=== PATIENT | male | born 1945 | race Caucasian/White ===

== ENCOUNTER 2018-10-10 22:24 | Emergency (ER) | payer MEDICARE, OTHER ==
[~2018-10-10] VITALS: Ht 177.8 cm; Wt 86.2 kg
[~2018-10-10 22:24] MED LIST: GLIP10TA11 PO; PIOG15TA8 PO
--- NOTE | 2018-10-10 22:31 | NUR ---
Placed in room 06 . Placed on surveillance system monitor, blood pressure machine and pulse oximeter. To gown for exam. Side rails up. Report given to Michael LARSEN.
[2018-10-10] MEDS ORDERED: ASPIRIN 81 MG TAB.CHEW PO ONE (22:45)
--- NOTE | 2018-10-10 22:45 | NUR ---
MARCY Bernal at bedside examining patient.
[2018-10-10 22:49] VITALS: BP_SYST 160
--- NOTE | 2018-10-10 22:50 | NUR ---
Note [email or web address] in ED - 10/10/18 at 2306 by ERLIN Patient to ER via triage for evaluation of left sided CP which patient describes as soreness. Patient is awake, alert and oriented in no acute distress, vital signs stable, respirations even and unlabored, skin warm and dry to touch. Patient shows sinus rhythm on surveillance monitor. Awaiting evaluation by ER MD, will continue to observe and assess.
--- NOTE | 2018-10-10 22:50 | NUR ---
Patient to ER via triage for evaluation of left sided cp without radiation, patient also reports weakness, patient is awake, alert and oriented in no acute distress, vital signs stable, respirations even and unlabored, skin warm and dry to touch. Patient in sinus rhythm on monitor tech. Patient has been seen and evaluated by Dr Meyer, will continue to observe and assess.
--- NOTE | 2018-10-10 22:58 | NUR ---
PT taken to radiology via gurney in stable condition
[2018-10-10] MEDS ORDERED: NITROGLYCERIN 0.4 MG TAB.SUBL SL ONE (23:00)
[2018-10-10] MEDS ORDERED: NACL 0.9% 1,000 ML IV ONE (23:00)
[2018-10-10] MEDS ORDERED: MORPHINE 4 MG/ML INJ. SYRINGE IVP ONE (23:00)
[2018-10-10] MEDS ORDERED: INSU100V9 SQ (23:03)
[2018-10-10] MEDS ORDERED: OMEG-95 PO (23:03)
[2018-10-10] MEDS ORDERED: METF1000 PO (23:03)
[2018-10-10] MEDS ORDERED: LOSA25TA3 PO (23:03)
[2018-10-10] MEDS ORDERED: OMEG-158 PO (23:03)
[2018-10-10] MEDS ORDERED: VITD2000 PO (23:03)
[2018-10-10] MEDS ORDERED: LIP20 PO (23:03)
[2018-10-10] MEDS ORDERED: GLIP10TA21 PO (23:03)
--- NOTE | 2018-10-10 23:04 | NUR ---
Medication reconciliation completed with information provided by pt. Any prior medication reconciliation on file was reviewed and corrected.
[2018-10-10] MEDS ORDERED: ASPIRIN 81 MG TAB.CHEW ONE (23:08)
[2018-10-10 23:09] LABS: BASOPHILS % (AUTO) 0.7 % (0.0-2.0); EOSINOPHILS # (AUTO) 0.3 K/uL (0.0-0.4); EOSINOPHILS % (AUTO) 4.8 % (0.0-4.0); HEMATOCRIT 38.3 % (36-54); HEMOGLOBIN 12.9 g/dL (14.0-18.0); LYMPHOCYTES # (AUTO) 2.1 K/uL (1.0-5.5); LYMPHOCYTES % (AUTO) 37.3 % (20.5-51.5); MEAN CORPUSCULAR HEMOGLOBIN 30 pg (27-31); MEAN CORPUSCULAR HGB CONC 34 % (32-36); MEAN CORPUSCULAR VOLUME 89 fL (79.0-98.0); MONOCYTES # (AUTO) 0.5 K/uL (0.0-1.0); MONOCYTES % (AUTO) 9.1 % (1.7-9.3); NEUTROPHILS # (AUTO) 2.8 K/uL (1.8-7.7); NEUTROPHILS % (AUTO) 48.1 % (40.0-70.0); PLATELET COUNT (AUTO) 186 K/uL (130-430); RED BLOOD CELL COUNT(AUTO) 4.31 MIL/uL (4.2-6.2); RED CELL DISTRIBUTION WIDTH 12.9 % (9.0-15.0); WHITE BLOOD COUNT (AUTO) 5.7 K/uL (4.8-10.8)
--- NOTE | 2018-10-10 23:15 | NUR ---
Patient returned from CT scan in stable condition via [place].
--- NOTE | 2018-10-10 23:30 | NUR ---
Patient restng quietly in no acute distress, vital signs stable, respirations even and unlabored, skin warm and dry to touch. Patient remains in sinus rhythm on quality assurance monitor final. No adverse reaction noted to medication. IV fluids infusing without difficulty, no redness or swelling noted at site.
[2018-10-10 23:38] LABS: ANION GAP 12 (5-15); CALCIUM 9.5 mg/dL (8.4-11.0); CHLORIDE 105 mmol/L (98-107); CREATININE 1.28 mg/dL (0.55-1.30); GLUCOSE 92 mg/dL (70-99); SODIUM SERUM 143 mmol/L (136-145); UREA NITROGEN, BLOOD 25 mg/dL (8-21)
[2018-10-10 23:51] LABS: ALANINE AMINOTRANSFERASE 30 U/L (12-78); ALBUMIN 3.7 g/dL (3.4-4.8); ASPARTATE AMINOTRANSFERASE 16 U/L (10-37); TOTAL BILIRUBIN 0.3 mg/dL (0.0-1.0)
[2018-10-10 23:55] LABS: BILIRUBIN,URINE NEGATIVE (NEGATIVE); CLARITY/URINE CLEAR (CLEAR); COLOR,URINE YELLOW (YELLOW); GLUCOSE,URINE NEGATIVE (NEGATIVE); KETONES,URINE NEGATIVE (NEGATIVE); LEUKOCYTE ESTERASE ,URINE NEGATIVE (NEGATIVE); NITRITE, URINE NEGATIVE (NEGATIVE); PROTEIN URINE 2+ (NEGATIVE); UROBILINOGEN,URINE 0.2 (0.2-1.0)
[2018-10-10 23:56] LABS: BLOOD, URINE TRACE (NEGATIVE)
[2018-10-10 23:59] LABS: BACTERIA,URINE RARE /HPF (None Seen); HYALINE CASTS, URINE 0-10 /LPF (None Seen); WBC,URINE 0-3 /HPF (0-3)
--- NOTE | 2018-10-11 00:30 | NUR ---
Patient resting quietly in no acute distress, vital signs stable, respirations even and unlabored, skin warm and dry to touch. No adverse reaction noted to medication.
--- NOTE | 2018-10-11 00:50 | NUR ---
Lab at bedside to obtain repeat specimens.
--- NOTE | 2018-10-11 01:30 | NUR ---
Patient resting quietly in no acute distress, vital signs stable, respirations even and unlabored, skin warm and dry to touch. Awaiting lab results and dispo.
--- NOTE | 2018-10-11 01:39 | NUR ---
Dr Meyer at bedside speaking with patient/family regarding results and plan of care, questions answered by Dr Meyer.
[2018-10-11 02:00] VITALS: BP_SYST 135
--- NOTE | 2018-10-11 02:00 | NUR ---
Patient given written and verbal discharge instructions and verbalizes understanding. ER MD discussed with patient the results and treatment provided. Patient in stable condition. ID arm band removed. IV catheter removed intact and dressing applied, no active bleeding. No RX given. Patient educated on pain management and to follow up with PMD. Pain Scale 0. Opportunity for questions provided and answered. Medication side effect fact sheet provided. Patient left ER in no acute distress, able to ambulate without difficulty with slow, steady gait with family at his side. No adverse reaction noted to medication.
== END 2018-10-11 02:00 | disposition home or self-care (01) ==
LOC: SED 22:24
DX: R07.89 Other chest pain (principal); E11.9 Type 2 diabetes mellitus without complications; I10 Essential (primary) hypertension; Z79.899 Other long term (current) drug therapy
CPT/HCPCS: 36415; 70450; 71045; 80053; 81000; 83605; 83880; 84484; 85025; 87040; 87086; 93005; 96374; 99284; J2270; J7030

== ENCOUNTER 2018-11-21 01:00 | Emergency (ER) | payer MEDICARE, OTHER ==
[~2018-11-21] VITALS: Ht 177.8 cm; Wt 86.2 kg
[~2018-11-21 01:00] MED LIST changes: +GLIP10TA21 PO; +INSU100V9 SQ; +LIP20 PO; +LOSA25TA3 PO; +METF1000 PO; +OMEG-158 PO; +OMEG-95 PO; +VITD2000 PO
[2018-11-21 01:04] VITALS: BP_SYST 170
[2018-11-21] MEDS ORDERED: DIPHENHYDRAMINE INJ 50 MG/ML VIAL IM ONE (02:00)
[2018-11-21] MEDS ORDERED: KETOROLAC TROMETHAMINE 60 MG/2 ML VIAL IM ONE (02:00)
[2018-11-21] MEDS ORDERED: MORPHINE SULFATE 10 MG/ML VIAL IM ONE (02:00)
[2018-11-21 02:28] VITALS: BP_SYST 155
== END 2018-11-21 02:28 | disposition home or self-care (01) ==
LOC: SED 01:00
DX: S46.911A Strain of unspecified muscle, fascia and tendon at shoulder and upper arm level, right arm, initial encounter (principal); S40.011A Contusion of right shoulder, initial encounter; I10 Essential (primary) hypertension; E11.9 Type 2 diabetes mellitus without complications; W01.0XXA Fall on same level from slipping, tripping and stumbling without subsequent striking against object, initial encounter; Y93.89 Activity, other specified; Y92.89 Other specified places as the place of occurrence of the external cause; Y99.8 Other external cause status
CPT/HCPCS: 29105; 73030; 96372; 99283; J1200; J1885; J2270